=== PATIENT | male | born 1980 | race Caucasian/White ===

== ENCOUNTER 2022-12-30 13:26 | Emergency (ER) | payer OTHER ==
[~2022-12-30] VITALS: Ht 180.3 cm; Wt 96.2 kg
[2022-12-30] MEDS ORDERED: PREDNISONE50 MG PO (13:46)
== END 2022-12-30 14:01 | disposition home or self-care (01) ==
LOC: ED 13:26
DX: L23.7 Allergic contact dermatitis due to plants, except food (principal)